=== PATIENT | male | born 1975 | race Caucasian/White ===

== ENCOUNTER 2022-11-23 08:20 | Day surgery (SDC) | payer OTHER, SELFPAY ==
--- NOTE | 2022-11-23 | PATH_ITS ---
[facility] Accession Number: [id number] No. of containers..01 Tissue . 01 Material submitted: . rectum - RECTAL POLYP . 01 Diagnosis: Rectum Polyp: Tubular adenoma. MRV 11/28/2022 1630 Local . 01 Electronically signed: . Asiya Barrera MD, Pathologist NPI- [id number] . 01 Gross description: . RECTAL POLYP: Received in formalin is 2 fragment(s) of gonsalves, soft tissue measuring 0.4 x 0.3 x 0.3 cm to 0.3 x 0.2 x 0.1 cm submitted entirely in 1 cassette(s) /AAY 11/26/2022 2347 Local . 01 Pathologist provided ICD-10: D12.8 . 01 CPT . 433736 Specimen Comment: A courtesy copy of this report has been sent to [phone] Performed at: 01 [facility] [address] [place] [address], [place], [place] [id number] MD Vinicio East MD Phone: [phone]
[2022-11-23] MEDS: LACTATED RINGERS 1,000 ML 150 ML IV (09:03)
[2022-11-23 09:04] VITALS: BP 128/88; PULSE 90; RESP 18; TEMP 36.6; O2SAT 100; BMI 44.7
--- NOTE | 2022-11-23 09:58 | P.HP_ITS ---
History of Present Illness History of Present Illness Date Patient Seen: 11/23/22 Time Patient Seen: 09:58 Chief complaint: Screening Colonoscopy Narrative: First colonoscopy for colon cancer screening. No significant family history for colon cancer. [facility] Medical History Colon cancer screening Social History Smoking Status: Never smoker alcohol intake: current Meds Home Medications and Allergies Allergies Allergy/AdvReac Type Severity Reaction Status Date / Time No Known Drug Allergies Allergy Verified 11/23/22 09:30 Review of Systems Review of Systems ROS: Yes All systems reviewed with the patient and are negative except as otherwise documented Exam Vital Signs (past 8 hours): - 11/23/22 09:04 Temperature 98 F Pulse Rate 90 Respiratory Rate 18 Blood Pressure 128/88 Pulse Oximetry 100 Oxygen Delivery Method Room Air Oxygen Delivery Method Room Air Const General: cooperative, healthy appearing and comfortable HENMT Head: normocephalic and atraumatic Eyes General: appearance normal, both eyes and all related structures Sclera: sclerae normal Neck Neck: trachea midline Resp Effort & Inspection: normal respiratory effort and able to speak in complete sentences Cardio Rate: regular rate Rhythm: regular rhythm GI Palpation: soft Skin General: elasticity normal Neuro General: patient alert, patient awake and patient oriented x3 Cognition: normal cognition Psych Judgment: judgment good Assessment & Plan Assessment & Plan narrative: colon cancer screening using colonoscopy with anesthesia Time Spent With Patient Time with patient: less than 30 minutes
--- NOTE | 2022-11-23 10:21 | PM.OP.COLON ---
Operative Date/Time/Diagnoses Date of procedure: 11/23/22 Time of procedure: 10:21 Pre-op diagnosis: Colon cancer screening Post-op diagnosis: same Procedure & Clinicians Study performed: Colonoscopy with cold forceps polypectomy Same procedure as scheduled: Yes Indications: Colon cancer screening Surgeon: Tara Godoy Procedure Notes Procedure in detail: Preop diagnosis: Colon cancer screening Postop diagnosis: Same Operative procedure: Colonoscopy with cold forceps polypectomy with anesthesia Surgeon: Ashwini Godoy MD Findings: 3 mm polyp in the rectum taken with cold forceps Procedure: Patient placed in a lateral position. Rectal exam performed showing normal tone no masses. Colonoscope inserted into the rectum and advanced to ileocecal valve with minimal difficulty. Insufflation and extraction of the scope and the above findings. Retroflex was included. Impression: Excellent bowel prep, single rectal polyp 3 mm in size. Plan: Repeat colonoscopy in 5 years unless otherwise indicated by change in clinical condition Findings: polyp(s) (3 mm rectal polyp) Specimen(s): other (Rectal polyp) Complications: none Impression: Single adenomatous appearing rectal polyp which puts him on a 5 year repeat screening Post-procedure Recommendations: Colonoscopy in 5 years Follow up: as needed Disposition: PACU
[2022-11-23 10:26] VITALS: BP 98/67; PULSE 83; RESP 12; TEMP 37; O2SAT 98
[2022-11-23 10:31] VITALS: BP 107/79; PULSE 84; RESP 12; O2SAT 97
[2022-11-23 10:35] VITALS: BP 126/76; PULSE 70; RESP 14; TEMP 36.5; O2SAT 98
[2022-11-23 10:40] VITALS: BP 113/76; PULSE 64; RESP 15; O2SAT 98
[2022-11-23 10:55] VITALS: BP 115/70; PULSE 67; RESP 14; TEMP 36.5; O2SAT 98
== END 2022-11-23 11:00 | disposition home or self-care (01) ==
PROVIDERS: PCP Surgery; Referring Provider Surgery; Visit Provider Surgery
PROC: 0DJD8ZZ Inspection of Lower Intestinal Tract, Via Natural or Artificial Opening Endoscopic (ICD-10-PCS; CPT 45378; principal; 2022-11-23 09:45)
DX: Z12.11 Encounter for screening for malignant neoplasm of colon (principal); D12.8 Benign neoplasm of rectum
CPT/HCPCS: 45380; J2704